=== PATIENT | female | born 1960 | race Native Hawaiian/Other Pacific Islander ===

== ENCOUNTER 2021-05-16 14:30 | Outpatient (CLI) | payer OTHER | END 2021-05-16 20:45 | disposition home or self-care (01) | LOC: RAD 14:30 | PROVIDERS: ATTEND Internal Medicine | DX: M54.2 Cervicalgia (principal); M25.511 Pain in right shoulder ==

== ENCOUNTER 2022-11-08 09:53 | Outpatient (CLI) | payer BC | END 2022-11-08 19:20 | disposition home or self-care (01) | LOC: MRI 09:53 | PROVIDERS: ATTEND Internal Medicine | DX: G44.311 Acute post-traumatic headache, intractable (principal) | CPT/HCPCS: 36415; 82565; 84520; A9576 ==

== ENCOUNTER 2023-02-26 16:43 | Outpatient (CLI) | payer BC | END 2023-02-26 21:23 | disposition home or self-care (01) | LOC: RAD 16:43 | PROVIDERS: ATTEND Internal Medicine | DX: J40 Bronchitis, not specified as acute or chronic (principal) ==